=== PATIENT | male | born 1985 | race Two or more races ===

== ENCOUNTER 2025-03-22 14:33 | Emergency (ER) | payer OTHER ==
[~2025-03-22] VITALS: Ht 167.6 cm; Wt 83.5 kg
[2025-03-22 14:54] VITALS: TEMP 98.8
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
[2025-03-22] MEDS: HYDROcodone-ACET 5/325MG TAB PO ONE (16:14)
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
[2025-03-22] MEDS ORDERED: IBUP-1456 PO (16:59)
[2025-03-22] MEDS ORDERED: METH-1182 PO (16:59)
[2025-03-22 17:09] VITALS: BP 113/82; PULSE 95; RESP 18; O2SAT 98
== END 2025-03-22 17:08 | disposition home or self-care (01) ==
LOC: EDBD 14:33 → ER 14:33
DX: S16.1XXA Strain of muscle, fascia and tendon at neck level, initial encounter (principal); Z79.1 Long term (current) use of non-steroidal anti-inflammatories (NSAID); Z79.899 Other long term (current) drug therapy; V89.2XXA Person injured in unspecified motor-vehicle accident, traffic, initial encounter; Y93.89 Activity, other specified; Y92.488 Other paved roadways as the place of occurrence of the external cause; Y99.8 Other external cause status
CPT/HCPCS: 72040; 72070